=== PATIENT | male | born 1965 | race African-American/Black ===

== ENCOUNTER 2017-06-04 11:57 | Emergency (ER) | payer MEDICAID ==
[~2017-06-04] VITALS: Ht 175.3 cm; Wt 86.2 kg
[~2017-06-04 11:57] MED LIST: COUMADIN7.5 MG ORAL
[2017-06-04 12:09] VITALS: BP 137/78
--- NOTE | 2017-06-04 12:51 | Emergency Room Report ---
History of Present Illness General Chief Complaint: General Complaint Present Illness HPI 52 YO Male presents to the ED C/O discoloration and dryness around the bilateral ankles x several months. Pt. also d/o thickened callouses on the heels and plantar aspect of several toes. denies pain. denies increased temperature to palpation. Pt. reports he has been applying lotion regularly with no relief. Pt. also has 5/10 in severity right posterior upper back/ scapular pain that is intermittent and exacerbated with reaching with his right hand. hx of DVT, on Xarelto. has a few questions about how Xarelto and Coumadin work exactly. Denies CP, Palpitations, LOC, AMS, dizziness, Changes in Vision, Sensation, paresthesias, or a sudden severe headache. Allergies: Coded Allergies: No Known Allergies (Unverified , 06/18/13) Patient History Past Medical History: see triage record Past Surgical History: none Pertinent Family History: none Reviewed Nursing Documentation: PMH: Agreed, PSxH: Agreed Nursing Documentation-PMH Hx Cancer: No Hx Gastrointestinal Problems: No Hx Neurological Problems: No Review of Systems All Other Systems: negative except mentioned in HPI Physical Exam Vital Signs Date Time Temp Pulse Resp B/P (MAP) Pulse Ox O2 Delivery O2 Flow Rate FiO2 06/04/17 12:09 97.9 86 20 137/78 98 Room Air Sp02 EP Interpretation: reviewed, normal General Appearance: no apparent distress, alert, GCS 15, non-toxic Head: normocephalic, atraumatic Eyes: bilateral eye normal inspection, bilateral eye PERRL ENT: hearing grossly normal, normal voice Neck: full range of motion Respiratory: chest non-tender, lungs clear, normal breath sounds, speaking full sentences Cardiovascular #1: regular rate, rhythm, no edema, normal capillary refill Gastrointestinal: normal bowel sounds, non tender, soft Rectal: deferred Genitourinary: normal inspection Musculoskeletal: back normal, gait/station normal, normal range of motion, non- tender - no appreciable ttp in the right shoulder region or chest. some ttp in the right thoracic paraspinal musculature, no weakness of the right arm. Neurologic: alert, oriented x3, responsive, motor strength/tone normal, sensory intact, speech normal, grossly normal Psychiatric: judgement/insight normal Skin: warm/dry, well hydrated, rash - stasis dermatitis- hyperpigmented dry appearance to the bilateral anterior shins and ankles. pt. also has a corn on the right foot. no open ulcers no evidence of infection. Lymphatic: no adenopathy Medical Decision Making PA Attestation Dr. Villafuerte is my supervising Physician whom patient management has been discussed with. Diagnostic Impression: Primary Impression: Muscle strain of right scapular region Qualified Codes: S46.911A - Strain of unspecified muscle, fascia and tendon at shoulder and upper arm level, right arm, initial encounter Additional Impressions: Muscle strain of right upper back Qualified Codes: S29.012A - Strain of muscle and tendon of back wall of thorax , initial encounter Stasis dermatitis of both legs Dermatitis of both feet ER Course 52 YO Male presents to the ED C/O discoloration and dryness around the bilateral ankles x several months. Pt. also d/o thickened callouses on the heels and plantar aspect of several toes. denies pain. denies increased temperature to palpation. Pt. reports he has been applying lotion regularly with no relief. Pt. also has 5/10 in severity right posterior upper back/ scapular pain that is intermittent and exacerbated with reaching with his right hand. hx of DVT, on Xarelto. has a few questions about how Xarelto and Coumadin work exactly. Denies CP, Palpitations, LOC, AMS, dizziness, Changes in Vision, Sensation, paresthesias, or a sudden severe headache. Ddx considered but are not limited to cellulitis, scabies, shingles, varicella, dermatitis, urticaria, eczema, tinea, viral exanthem, SJS, This is dermatitis, muscle strain, musculoskeletal injury just to name a few Vital signs: are WNL, pt. is afebrile H&PE are most consistent with Right shoulder muscle strain, and stasis dermatitis of bilateral feet. ORDERS: none required at this time, the diagnosis is clinical ED INTERVENTIONS: None required at this time. DISCHARGE: At this time pt. is stable for d/c to home. Will provide printed patient care instructions, and any necessary prescriptions. Care plan and follow up instructions have been discussed with the patient prior to discharge. Last Vital Signs Date Time Temp Pulse Resp B/P (MAP) Pulse Ox O2 Delivery O2 Flow Rate FiO2 06/04/17 12:09 97.9 86 20 137/78 98 Room Air Disposition: HOME, SELF-CARE Condition: Stable Scripts Acetaminophen* (TYLENOL EXTRA STRENGTH*) 500 Mg Tablet 500 MG ORAL Q6H, #20 TAB 0 Refills Prov: Noris Beach 06/04/17 Urea (UREACIN-10) 236.56 Ml Lotion 1 APPLIC TP BID, #236 ML Prov: Noris Beach 06/04/17 Patient Instructions: Muscle Strain, [id number], Stasis Dermatitis, Venous Stasis or Chronic Venous Insufficiency Additional Instructions: Take medications as directed. Follow up with a EMERGENCY DEPARTMENT AIDE in 3-5 days, call your insurance to be assigned a computer systems administrator, or visit your PCP for referral. Return sooner to ED if new symptoms occur, or current symptoms become worse. - Please note that this Emergency Department Report was dictated using [employer] Technologiescylinder press feeder technology software, occasionally this can lead to erroneous entry secondary to interpretation by the dictation equipment. Noris Beach Jun 04, 2017 12:51
[2017-06-04] MEDS ORDERED: [UNRECOGNIZED DRUG - CODE] TP (12:54)
[2017-06-04] MEDS ORDERED: TYLENOL EXTRA500 MG ORAL (12:54)
== END 2017-06-04 13:00 | disposition home or self-care (01) ==
LOC: EMR 12:35
DX: S29.012A Strain of muscle and tendon of back wall of thorax, initial encounter (principal); S46.811A Strain of other muscles, fascia and tendons at shoulder and upper arm level, right arm, initial encounter; X58.XXXA Exposure to other specified factors, initial encounter; Y92.9 Unspecified place or not applicable; I87.2 Venous insufficiency (chronic) (peripheral); L30.9 Dermatitis, unspecified
CPT/HCPCS: 99283

== ENCOUNTER 2018-12-05 11:14 | Emergency (ER) | payer MEDICAID, OTHER ==
[~2018-12-05] VITALS: Ht 175.3 cm; Wt 74.8 kg
[~2018-12-05 11:14] MED LIST changes: +TYLENOL EXTRA500 MG ORAL; +[UNRECOGNIZED DRUG - CODE] TP
[2018-12-05] MEDS ORDERED: NKM (11:33)
[2018-12-05] MEDS ORDERED: Enoxaparin 80mg Inj SUBQ ONE (12:00)
[2018-12-05] MEDS ORDERED: Warfarin Sodium 10mg ORAL ONE (12:00)
--- NOTE | 2018-12-05 12:11 | NUR ---
ED Nurse Note: recieved pt on bedside. hooked on monitor, with vs stable. pt stated he came in the ed bacause he ahs cough for a week and he is thinking it might be the first sign of pulmonary embolism, pt denies chest pain. will continue to monitor.
[2018-12-05 12:13] VITALS: BP 118/76
[2018-12-05] MEDS ORDERED: COUMADIN7.5 MG ORAL (12:50)
[2018-12-05] MEDS ORDERED: CLEAR EYES NATU15 ML OP (12:58)
[2018-12-05 13:00] VITALS: BP 116/76
--- NOTE | 2018-12-05 13:00 | NUR ---
ER DISCHARGE NOTE: Patient is cleared to be discharged per ERMD, pt is aox4, on room air, with stable vital signs. pt was given dc and prescription instructions, pt was able to verbalize understanding, pt id band removed without complications. pt is able to ambulate with steady gait. pt took all belongings.
--- NOTE | 2018-12-05 13:23 | Emergency Room Report ---
History of Present Illness General Chief Complaint: Upper Respiratory Illness Source: Patient, Medical Record Present Illness HPI Patient presents with request of being put back on his medication patient was diagnosed with a pulmonary embolism In 2014 since then has had fairly significant noncompliance Also now reporting being off his medication over the past 1 year Denies any shortness of breath denies any headache patient initially reported cough however Reports that this was last week and has improved at this time denies any fevers or chills denies any pleurisy Allergies: Coded Allergies: No Known Allergies (Unverified , 06/18/13) Patient History Past Medical History: see triage record Pertinent Family History: none Reviewed Nursing Documentation: PMH: Agreed; PSxH: Agreed Nursing Documentation-PMH Past Medical History: No History, Except For Hx Cancer: No Hx Gastrointestinal Problems: No Hx Neurological Problems: No Review of Systems All Other Systems: negative except mentioned in HPI Physical Exam Vital Signs Date Time Temp Pulse Resp B/P (MAP) Pulse Ox O2 Delivery O2 Flow Rate FiO2 12/05/18 11:28 98.2 70 16 126/80 (95) 99 Room Air Sp02 EP Interpretation: reviewed, normal General Appearance: well appearing, no apparent distress Head: normocephalic, atraumatic 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 ENT: hearing grossly normal, normal pharynx, TMs + canals normal, uvula midline Neck: full range of motion, supple, no meningismus, no bony tend Respiratory: lungs clear, normal breath sounds, no rhonchi, no respiratory distress, no retraction, no accessory muscle use Cardiovascular #1: normal peripheral pulses, regular rate, rhythm, no edema, no gallop, no JVD, no murmur Gastrointestinal: normal bowel sounds, non tender, soft, no mass, no organomegaly, non-distended, no guarding, no hernia, no pulsatile mass, no rebound Genitourinary: no CVA tenderness Musculoskeletal: normal inspection Neurologic: oriented x3, responsive, plant biology professor III-XII nml as tested, motor strength/ tone normal, sensory intact Psychiatric: mood/affect normal Skin: no rash Lymphatic: normal inspection, no adenopathy Medical Decision Making Diagnostic Impression: Primary Impression: medical screening Additional Impression: medication refill ER Course Patient has had a fairly complex past medical history On review of medical records also had an ivc filter placed here in 2013 patient has had previous presentation with noncompliance At this time was given Lovenox injection and placed on Coumadin I spent a significant amount of time discussing the need for close outpatient follow-up with the patient It is possible that he could potentially be taken off the blood thinning medications if appropriate Accu-Chek was also obtained which was negative Patient remains hemodynamically stable heart rate is normal respiration and oxygenation appropriate And stable for close outpatient follow-up EKG Diagnostic Results Rate: normal Rhythm: NSR ST Segments: no acute changes Rhythm Strip Diag. Results EP Interpretation: yes Rate: 80 Rhythm: NSR, no PVC's, no ectopy Last Vital Signs Date Time Temp Pulse Resp B/P (MAP) Pulse Ox O2 Delivery O2 Flow Rate FiO2 12/05/18 12:13 98.2 70 17 118/76 100 Room Air Status: improved Disposition: HOME, SELF-CARE Condition: Improved Scripts Polyvinyl Alcohol/Povidone (Clear Eyes Natural Tears Drop) 15 Ml Drops 3 DROP OP TID for 21 Days, ML Prov: Fang Sharma DO 12/05/18 Warfarin Sod (COUMADIN*) 7.5 Mg Tablet 7.5 MG ORAL THREE TIMES A WEEK, #15 TAB Prov: Fang Sharma DO 12/05/18 Referrals: [facility],REFERRING (PCP) [facility] Victorina Soto [facility] Patient Instructions: Medicine Refill at the Emergency Department, Medical Screening Exam Additional Instructions: Patient is provided with the discharge instructions notified to follow up with primary doctor in the next 2-3 days otherwise return to the er with any worsening symptoms. Please note that this report is being documented using [employer] technology. This can lead to erroneous entry secondary to incorrect interpretation by the dictating instrument. Fang Sharma DO Dec 05, 2018 13:23
== END 2018-12-05 13:00 | disposition home or self-care (01) ==
LOC: EMR 11:59
DX: Z76.0 Encounter for issue of repeat prescription (principal); Z86.711 Personal history of pulmonary embolism; Z91.14 Patient's other noncompliance with medication regimen
CPT/HCPCS: 82962; 93005; 99283; J1650